=== PATIENT | female | born 1965 | race Caucasian/White ===

== ENCOUNTER 2023-05-03 09:29 | Outpatient (CLI) | payer OTHER | END 2023-05-03 09:30 | disposition home or self-care (01) | LOC: CSHRAD 09:29 | PROVIDERS: ATTEND Neurological Surgery | DX: M43.16 Spondylolisthesis, lumbar region (principal); Z98.890 Other specified postprocedural states; M47.816 Spondylosis without myelopathy or radiculopathy, lumbar region | CPT/HCPCS: 72100 ==

== ENCOUNTER 2023-05-23 09:57 | Day surgery (SDC) | payer OTHER ==
[2023-05-23 11:43] VITALS: BP 128/83; TEMP 96.3
[2023-05-23] MEDS ORDERED: Iopamidol-M 200 41% 10 ML VIAL FS ONE (14:13)
== END 2023-05-23 12:15 | disposition home or self-care (01) ==
LOC: CJX 09:57 → EDSTATUS 10:00 → CJX 12:15
PROVIDERS: ATTEND Neurological Surgery
PROC: B02BYZZ Computerized Tomography (CT Scan) of Spinal Cord using Other Contrast (ICD-10-PCS; principal; 2023-05-23)
DX: M54.16 Radiculopathy, lumbar region (principal); M48.061 Spinal stenosis, lumbar region without neurogenic claudication; Z88.5 Allergy status to narcotic agent; Z88.9 Allergy status to unspecified drugs, medicaments and biological substances
CPT/HCPCS: 62304; 72132; Q9966